=== PATIENT | female | born 1965 | race Two or more races ===

== ENCOUNTER 2022-05-03 06:46 | Emergency (ER) | payer MEDICAID ==
[~2022-05-03] VITALS: Ht 154.9 cm; Wt 72.0 kg
[2022-05-03 07:33] LABS: Basophils # (auto) 0 10 ^3/uL (0-0.2); Basophils % (auto) 0.6 % (0.0-2.0); Eosinophils # (auto) 0.1 10 ^3/uL (0-0.8); Eosinophils % (auto) 2.5 % (0.0-7.0); Hematocrit 42.7 % (36.0-46.0); Hemoglobin 14.5 g/dL (12.2-16.2); Lymphocytes # (auto) 1.4 10 ^3/uL (0.4-5.4); Lymphocytes % (auto) 45.9 % (10.0-50.0); Mean Corpuscular Hemoglobin 30.6 pg (28.0-32.0); Mean Corpuscular Hgb Conc. 33.9 g/dL (32.0-36.0); Monocytes # (auto) 0.5 10 ^3/uL (0-1.3); Monocytes % (auto) 16.7 % (0.0-12.0); Neutrophils # (auto) 1.1 10 ^3/uL (1.6-8.6); Neutrophils % (auto) 34.3 % (37.0-80.0); Nucleated Red Blood Cells % 0.1 %; Red Blood Cells 4.74 10^6/uL (4.0-5.20); Red Cell Distribution Width 13.6 % (11.8-14.3); White Blood Cell 3.1 10^3/uL (4.4-10.8)
[2022-05-03 07:56] LABS: BUN/Creatinine Ratio 27.1; Calcium 9.3 mg/dL (8.5-10.1); Potassium 4.1 mmol/L (3.5-5.1)
[2022-05-03 07:58] LABS: Bilirubin, Total 0.4 mg/dL (0.2-1.0); Total Protein 7.8 g/dL (6.4-8.2)
[2022-05-03 14:54] VITALS: BP 138/78
== END 2022-05-03 14:54 | disposition home or self-care (01) ==
LOC: ER 06:46
DX: U09.9 Post COVID-19 condition, unspecified (principal); R20.2 Paresthesia of skin; I10 Essential (primary) hypertension; E11.9 Type 2 diabetes mellitus without complications
CPT/HCPCS: 36415; 70450; 72125; 80053; 85025; 93005

== ENCOUNTER 2022-07-23 05:05 | Emergency (ER) | payer MEDICAID ==
[~2022-07-23] VITALS: Ht 154.9 cm; Wt 64.1 kg
[2022-07-23 05:18] VITALS: BP 148/78
[2022-07-23 06:09] LABS: Basophils # (auto) 0 10 ^3/uL (0-0.2); Basophils % (auto) 0.5 % (0.0-2.0); Eosinophils # (auto) 0.1 10 ^3/uL (0-0.8); Eosinophils % (auto) 2.8 % (0.0-7.0); Hemoglobin 13.7 g/dL (12.2-16.2); Lymphocytes # (auto) 1.4 10 ^3/uL (0.4-5.4); Lymphocytes % (auto) 49.4 % (10.0-50.0); Mean Corpuscular Hemoglobin 30.7 pg (28.0-32.0); Mean Corpuscular Hgb Conc. 34.4 g/dL (32.0-36.0); Mean Corpuscular Volume 89.2 fL (80.0-100.0); Monocytes # (auto) 0.5 10 ^3/uL (0-1.3); Monocytes % (auto) 17.6 % (0.0-12.0); Neutrophils # (auto) 0.9 10 ^3/uL (1.6-8.6); Neutrophils % (auto) 29.7 % (37.0-80.0); Red Blood Cells 4.48 10^6/uL (4.0-5.20); White Blood Cell 2.9 10^3/uL (4.4-10.8)
[2022-07-23 06:26] LABS: BUN/Creatinine Ratio 30.6; Calcium 9.4 mg/dL (8.5-10.1); Potassium 4.4 mmol/L (3.5-5.1)
[2022-07-23 06:30] LABS: Bilirubin, Total 0.5 mg/dL (0.2-1.0); Total Protein 6.8 g/dL (6.4-8.2)
[2022-07-23] MEDS ORDERED: traMADol HCL 50 MG TAB PO ONE (12:00)
== END 2022-07-23 12:36 | disposition home or self-care (01) ==
LOC: ER 05:05
DX: R20.2 Paresthesia of skin (principal); I10 Essential (primary) hypertension; E11.9 Type 2 diabetes mellitus without complications
CPT/HCPCS: 36415; 70450; 80053; 84484; 85025; 93005

== ENCOUNTER 2022-08-03 05:32 | Emergency (ER) | payer MEDICAID ==
[~2022-08-03] VITALS: Ht 154.9 cm; Wt 64.3 kg
[2022-08-03 07:07] LABS: Basophils # (auto) 0 10 ^3/uL (0-0.2); Basophils % (auto) 0.6 % (0.0-2.0); Eosinophils # (auto) 0.1 10 ^3/uL (0-0.8); Eosinophils % (auto) 2.5 % (0.0-7.0); Hematocrit 42.6 % (36.0-46.0); Hemoglobin 14.3 g/dL (12.2-16.2); Lymphocytes # (auto) 1.5 10 ^3/uL (0.4-5.4); Lymphocytes % (auto) 35.9 % (10.0-50.0); Mean Corpuscular Hemoglobin 29.8 pg (28.0-32.0); Mean Corpuscular Hgb Conc. 33.5 g/dL (32.0-36.0); Mean Corpuscular Volume 88.9 fL (80.0-100.0); Monocytes # (auto) 0.6 10 ^3/uL (0-1.3); Monocytes % (auto) 13.4 % (0.0-12.0); Neutrophils % (auto) 47.6 % (37.0-80.0); Nucleated Red Blood Cells % 0.1 %; Red Blood Cells 4.79 10^6/uL (4.0-5.20); Red Cell Distribution Width 13.2 % (11.8-14.3); White Blood Cell 4.2 10^3/uL (4.4-10.8)
[2022-08-03 07:44] LABS: Potassium 4.7 mmol/L (3.5-5.1)
[2022-08-03 07:55] LABS: Albumin 4.1 g/dL (3.4-5.0); BUN/Creatinine Ratio 24.6; Bilirubin, Total 0.4 mg/dL (0.2-1.0); Calcium 9.5 mg/dL (8.5-10.1); Total Protein 7.6 g/dL (6.4-8.2)
[2022-08-03 08:37] LABS: Urine Bacteria NONE SEEN /hpf (None Seen); Urine Blood Negative /uL (Negative); Urine Mucus FEW (None Seen); Urine WBC 1 /hpf (0 - 5)
[2022-08-03] MEDS ORDERED: DOCU-94 PO (11:07)
[2022-08-03 12:32] VITALS: BP 142/75
== END 2022-08-03 12:35 | disposition home or self-care (01) ==
LOC: ER 05:32
DX: K59.00 Constipation, unspecified (principal); K57.30 Diverticulosis of large intestine without perforation or abscess without bleeding; I10 Essential (primary) hypertension; E11.9 Type 2 diabetes mellitus without complications
CPT/HCPCS: 36415; 74176; 80053; 81001; 83690; 85025

== ENCOUNTER 2023-09-27 17:01 | Emergency (ER) | payer MEDICAID ==
[~2023-09-27] VITALS: Ht 154.9 cm; Wt 60.1 kg
[~2023-09-27 17:01] MED LIST: AZIT1POW PO; DOCU-94 PO
[2023-09-27 19:26] LABS: Basophils # (auto) 0 10 ^3/uL (0-0.2); Basophils % (auto) 0.6 % (0.0-2.0); Eosinophils # (auto) 0 10 ^3/uL (0-0.8); Eosinophils % (auto) 0.9 % (0.0-7.0); Hematocrit 45.1 % (36.0-46.0); Hemoglobin 15.3 g/dL (12.2-16.2); Lymphocytes # (auto) 2.1 10 ^3/uL (0.4-5.4); Lymphocytes % (auto) 44.4 % (10.0-50.0); Mean Corpuscular Hemoglobin 30.5 pg (28.0-32.0); Mean Corpuscular Hgb Conc. 33.9 g/dL (32.0-36.0); Mean Corpuscular Volume 89.8 fL (80.0-100.0); Monocytes # (auto) 0.6 10 ^3/uL (0-1.3); Monocytes % (auto) 12.1 % (0.0-12.0); Nucleated Red Blood Cells % 0.1 %; Red Blood Cells 5.02 10^6/uL (4.0-5.20); Red Cell Distribution Width 13.1 % (11.8-14.3); White Blood Cell 4.7 10^3/uL (4.4-10.8)
[2023-09-27 19:35] LABS: Chloride 107 mmol/L (98-107); Potassium 4.1 mmol/L (3.5-5.1); Sodium 142 mmol/L (136-145)
[2023-09-27 19:36] LABS: Anion Gap 8 (5-15); Calcium 10.5 mg/dL (8.5-10.1); Carbon Dioxide 27 mmol/L (20-30)
[2023-09-27 19:41] LABS: BUN/Creatinine Ratio 21.3 (10.0-20.0); Blood Urea Nitrogen 16 mg/dL (9-23); Glucose 101 mg/dL (74-106)
[2023-09-28 00:24] VITALS: BP 115/70; TEMP 98
[2023-09-28 00:30] VITALS: PULSE 64; RESP 16; O2SAT 97
== END 2023-09-28 00:44 | disposition home or self-care (01) ==
LOC: ER 17:01
DX: R42 Dizziness and giddiness (principal); R20.2 Paresthesia of skin; E11.9 Type 2 diabetes mellitus without complications; E78.5 Hyperlipidemia, unspecified; I10 Essential (primary) hypertension
CPT/HCPCS: 36415; 71045; 80048; 82962; 83880; 84484; 85025; 93005

== ENCOUNTER 2024-05-01 08:31 | Inpatient (IN) | payer MEDICAID ==
[~2024-05-01] VITALS: Ht 149.9 cm; Wt 62.2 kg
[2024-05-01 09:23] LABS: Hematocrit 42.3 % (36.0-46.0); Hemoglobin 14.5 g/dL (12.2-16.2); Mean Corpuscular Hemoglobin 31.7 pg (28.0-32.0); Mean Corpuscular Hgb Conc. 34.4 g/dL (32.0-36.0); Mean Corpuscular Volume 92.1 fL (80.0-100.0); Red Blood Cells 4.59 10^6/uL (4.0-5.20); Red Cell Distribution Width 12.9 % (11.8-14.3); White Blood Cell 2.6 10^3/uL (4.4-10.8)
[2024-05-01 09:24] LABS: Basophils % (manual) 0 (0.0-2.0); Blast Cells 0; Metamyelocytes % 0; Myelocytes % 0; Promyelocytes % 0; Reactive Lymphocytes 0
[2024-05-01 09:25] LABS: Alanine Aminotransferase 13 U/L (7-40); Alkaline Phosphatase 63 U/L (46-116); Anion Gap 5 (5-15); Blood Urea Nitrogen 15 mg/dL (9-23); Calcium 10.1 mg/dL (8.7-10.4); Carbon Dioxide 28 mmol/L (20-30); Chloride 106 mmol/L (98-107); Glucose 164 mg/dL (74-106); Potassium 4.4 mmol/L (3.5-5.1); Sodium 139 mmol/L (136-145)
[2024-05-01 09:26] LABS: Albumin 4.7 g/dL (3.2-4.8); Aspartate Aminotransferase 10 U/L (13-40); Bilirubin, Total 0.5 mg/dL (0.2-1.0); Total Protein 7.1 g/dL (5.7-8.2)
[2024-05-01] MEDS: NITROGLYCERIN 0.4 MG SL TAB SL ONE (09:30)
[2024-05-01 10:01] VITALS: PULSE 66
[2024-05-01 10:52] LABS: Band Neutrophils % (manual) 1; Eosinophils % (manual) 2 (0-7); Lymphocytes % (manual) 57 (10.0-50.0); Monocytes % (manual) 17 (0-12)
[2024-05-01 10:53] LABS: Platelet Estimate Adequate; RBC Morphology Normal
[2024-05-01 11:41] LABS: INR 1.09 (0.9-1.15); Partial Thromboplastin Time 24.7 SEC (24.5-34.5); Prothrombin Time 11.5 sec (9.3-11.8)
[2024-05-01] MEDS: ASPirin 325 MG TAB PO ONE (13:39)
[2024-05-01] MEDS ORDERED: NITROGLYCERIN 0.4 MG SL TAB SL PRN (19:00)
[2024-05-01] MEDS ORDERED: HYDROcodone-ACET 5/325MG TAB PO PRN (19:00)
[2024-05-01] MEDS ORDERED: ONDANSETRON HCL 4 MG/2 ML VIAL IV PRN (19:00)
[2024-05-01] MEDS ORDERED: DOCUSATE SOD 100 MG CAP PO PRN (19:00)
[2024-05-01] MEDS ORDERED: MORPHINE SULFATE INJ 2 MG/ml SYRG IV PRN (19:00)
[2024-05-01] MEDS ORDERED: ACETAMINOPHEN 325 MG TAB PO PRN (19:00)
[2024-05-01 20:15] VITALS: PULSE 65; RESP 16; O2SAT 98
[2024-05-01] MEDS: SODIUM CHLOR 0.9% PF (SALINE LOCK) 10ML VIAL/SYR IV SCH (22:00)
[2024-05-02 05:05] LABS: Hematocrit 41.1 % (36.0-46.0); Hemoglobin 14.1 g/dL (12.2-16.2); Mean Corpuscular Hemoglobin 31.4 pg (28.0-32.0); Mean Corpuscular Hgb Conc. 34.2 g/dL (32.0-36.0); Mean Corpuscular Volume 91.7 fL (80.0-100.0); Red Blood Cells 4.49 10^6/uL (4.0-5.20); Red Cell Distribution Width 13.1 % (11.8-14.3); White Blood Cell 3.8 10^3/uL (4.4-10.8)
[2024-05-02 05:08] LABS: Band Neutrophils % (manual) 0; Basophils % (manual) 0 (0.0-2.0); Blast Cells 0; Metamyelocytes % 0; Promyelocytes % 0
[2024-05-02 05:15] LABS: Alanine Aminotransferase 15 U/L (7-40); Albumin 4.4 g/dL (3.2-4.8); Alkaline Phosphatase 60 U/L (46-116); Anion Gap 9 (5-15); Aspartate Aminotransferase 9 U/L (13-40); BUN/Creatinine Ratio 19.7 (10.0-20.0); Bilirubin, Total 0.4 mg/dL (0.2-1.0); Blood Urea Nitrogen 15 mg/dL (9-23); Calcium 9.7 mg/dL (8.7-10.4); Carbon Dioxide 26 mmol/L (20-30); Chloride 107 mmol/L (98-107); Glucose 172 mg/dL (74-106); Potassium 4.2 mmol/L (3.5-5.1); Sodium 142 mmol/L (136-145); Total Protein 7.1 g/dL (5.7-8.2)
[2024-05-02 06:56] LABS: Eosinophils % (manual) 2 (0-7); Lymphocytes % (manual) 53 (10.0-50.0); Monocytes % (manual) 15 (0-12); Myelocytes % 1; Reactive Lymphocytes 2
[2024-05-02 06:57] LABS: Platelet Estimate Adequate
[2024-05-02 10:02] VITALS: RESP 20; O2SAT 97
[2024-05-02 10:28] LABS: Triglycerides 227 mg/dL (< 150)
[2024-05-02 10:29] LABS: Cholesterol 262 mg/dL (< 200); HDL Cholesterol 56 mg/dL (40-59); LDL Cholesterol 156 mg/dL (< 100)
[2024-05-02] MEDS: ASPirin-EC 81 mg tab PO SCH (10:33)
[2024-05-02] MEDS: ENOXAPARIN SOD 40 MG/0.4 ML SYRINGE SC SCH (11:04)
[2024-05-02] MEDS: SPIRONOLACTONE 25 MG TAB PO ONE (11:16)
[2024-05-02] MEDS: PANTOPRAZOLE 40 MG TAB PO ONE (11:16)
[2024-05-02] MEDS: CARVEDILOL 3.125 MG TAB PO ONE (11:58)
[2024-05-02] MEDS: EMPAGLIFLOZIN 10 MG TAB PO SCH (12:31)
[2024-05-02 14:26] VITALS: PULSE 65; RESP 16; O2SAT 99
[2024-05-02 14:55] VITALS: BP 111/73; PULSE 53; RESP 16; TEMP 98.2; O2SAT 99
[2024-05-02 17:18] VITALS: BP_SYST 75; PULSE 67; RESP 18; TEMP 98.3; O2SAT 95
[2024-05-02 19:42] VITALS: BP 114/74; PULSE 64; RESP 16; TEMP 98; O2SAT 99
[2024-05-02] MEDS ORDERED: ATORVASTATIN 20 MG TAB PO SCH ×2 (22:00)
[2024-05-02] MEDS ORDERED: CARVEDILOL 3.125 MG TAB PO SCH (22:00)
[2024-05-03] MEDS ORDERED: SACUBITRIL-VALSARTAN 24mg/26mg TAB PO SCH (10:00)
[2024-05-03] MEDS ORDERED: SPIRONOLACTONE 25 MG TAB PO SCH (10:00)
== END 2024-05-02 20:15 | disposition home or self-care (01) | DRG 203 ==
LOC: ER 08:38 → TELE 18:50 → TELE-CENTR 05-02 14:40
PROVIDERS: ADMIT Internal Medicine; ATTEND Internal Medicine
DX: M94.0 Chondrocostal junction syndrome [Tietze] (principal); I11.0 Hypertensive heart disease with heart failure; I50.22 Chronic systolic (congestive) heart failure; D70.9 Neutropenia, unspecified; K57.30 Diverticulosis of large intestine without perforation or abscess without bleeding; E78.5 Hyperlipidemia, unspecified; E11.9 Type 2 diabetes mellitus without complications
CPT/HCPCS: 36415; 71045; 80053; 80061; 83036; 83880; 84443; 84484; 85007; 85027; 85379; 85610; 85730; 93005; 93306; G0378